=== PATIENT | male | born 1950 | race Caucasian/White ===

== ENCOUNTER 2016-11-05 08:07 | Day surgery (SDC) | payer OTHER, MEDICARE ==
[~2016-11-05 08:07] MED LIST: FENTANYL 250 MCG/5 ML AMP IV PRN; LACTATED RINGERS 1,000 ML IV SCH; MIDAZOLAM HCL 5 MG/5 ML VIAL IV PRN
[2016-11-05] MEDS ORDERED: IV START KIT ONE (08:13)
[2016-11-05] MEDS ORDERED: LACTATED RINGERS 1,000 ML ONE (08:13)
[2016-11-05] MEDS ORDERED: FENTANYL 5 ML ONE (08:48)
[2016-11-05] MEDS ORDERED: MIDAZOLAM HCL 5 MG/5 ML VIAL ONE (08:48)
--- NOTE | 2016-11-09 14:03 | SURGPATH ---
[facility] [address] [place] [id number] Patient Name: CHUY RAE MR#: [id number] : 1950 Gender: M Specimen #: [id number] Collected: 11/05/2016 Received: 11/08/2016 Reported: 11/09/2016 Submitting Phys: SUNNY WRIGHT Copy [facility] Phys: [facility] Clinical History / Pre-Operative Diagnosis: Surveillance; history of colon polyps Specimen Source / Surgical Procedure Performed: Sigmoid polyp at 30 cm Interpretation: SIGMOID COLON, POLYP AT 30 CM, POLYPECTOMY: - BENIGN COLONIC MUCOSA WITH LYMPHOID AGGREGATE Electronically Signed Out Queta Burkett M.D. Gross Description: The specimen is received in a formalin filled container labeled with the patient's name and "sigmoid polyps at 30 cm". Two sapp biopsies are 0.2 and 0.3 cm. Totally embedded in one cassette. Rob Valerio Microscopic Description: Two fragments of colonic mucosa are examined, one of which shows a small reactive lymphoid aggregate. No adenomatous change or hyperplastic polyp is seen. 1: [id number] K63.89
== END 2016-11-05 10:00 | disposition home or self-care (01) ==
LOC: SDC 08:07
PROVIDERS: ATTEND Internal Medicine Gastroenterology
PROC: 0DBN8ZX Excision of Sigmoid Colon, Via Natural or Artificial Opening Endoscopic, Diagnostic (ICD-10-PCS; principal; 2016-11-05)
DX: Z12.11 Encounter for screening for malignant neoplasm of colon (principal); D12.5 Benign neoplasm of sigmoid colon; K57.30 Diverticulosis of large intestine without perforation or abscess without bleeding; Z86.010 Personal history of colon polyps; Z90.49 Acquired absence of other specified parts of digestive tract; Z87.891 Personal history of nicotine dependence
CPT/HCPCS: 45380; J3010; J2250; J7120